=== PATIENT | female | born 1935 | race Caucasian/White ===

== ENCOUNTER → 2022-10-17 | Outpatient (CLI) | payer BC, MEDICARE, OTHER | END | disposition home or self-care (01) | LOC: RAH 13:07 → EDUNIT# 13:30 | PROVIDERS: ATTEND Internal Medicine Cardiovascular Disease | DX: Z13.6 Encounter for screening for cardiovascular disorders (principal) | CPT/HCPCS: 75571 ==

== ENCOUNTER → 2023-05-27 | Outpatient (CLI) | payer MEDICARE, BC | END | disposition home or self-care (01) | LOC: RAH 12:20 | PROVIDERS: ATTEND Family Medicine | DX: S00.83XA Contusion of other part of head, initial encounter (principal); S02.2XXA Fracture of nasal bones, initial encounter for closed fracture; M79.89 Other specified soft tissue disorders; G31.9 Degenerative disease of nervous system, unspecified; R90.82 White matter disease, unspecified; X58.XXXA Exposure to other specified factors, initial encounter; Y93.89 Activity, other specified; Y92.89 Other specified places as the place of occurrence of the external cause; Y99.8 Other external cause status | CPT/HCPCS: 70450; 70486 ==

== ENCOUNTER → 2024-05-02 | Outpatient (CLI) | payer MEDICARE ==
[2024-05-02] MEDS: REGADENOSON 0.4 MG/5 ML PF SYG IVP ONE (16:03)
== END | disposition home or self-care (01) ==
LOC: SHCH 08:08
PROVIDERS: ATTEND Internal Medicine Cardiovascular Disease
DX: R07.89 Other chest pain (principal)
CPT/HCPCS: 78452; 93017; J2785; A9500 ×2

== ENCOUNTER → 2024-05-06 | Outpatient (CLI) | payer MEDICARE ==
--- NOTE | 2024-05-06 14:07 | HMCIMG ---
CT LUMBAR SPINE W/O CONTRAST REASON: LBP COMPARISON: None TECHNIQUE: Routine the lumbar images were obtained from mid body T11 through the sacrum. FINDINGS: There is moderate interspace narrowing at L1-2 and L2-3. There is marked interspace narrowing L5-S1. Vertebral body alignment is normal. There are no compression or other fractures. Axial images show moderate to degenerative changes in the facets. There is no disc herniation or spinal stenosis. There are no focal osseous lesions. Stranding soft tissues appear unremarkable. IMPRESSION: 1. Moderate lumbar degenerative changes, no acute finding.
== END | disposition home or self-care (01) ==
LOC: RAH 12:58
PROVIDERS: ATTEND Physical Medicine & Rehabilitation
DX: M47.816 Spondylosis without myelopathy or radiculopathy, lumbar region (principal); M51.369 Other intervertebral disc degeneration, lumbar region without mention of lumbar back pain or lower extremity pain; M48.07 Spinal stenosis, lumbosacral region
CPT/HCPCS: 72131